=== PATIENT | female | born 2000 | race American Indian/Alaskan Native ===

== ENCOUNTER 2019-05-27 16:19 | Emergency (ER) | payer OTHER ==
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
--- NOTE | 2019-05-27 18:39 | Cat Scan Report ---
CT CERVICAL SPINE WITHOUT CONTRAST HISTORY: Pain; laceration in the head COMPARISON: None TECHNIQUE: CT images of the cervical spine were obtained without contrast. Sagittal and coronal refo rmats were post-processed. All CT scans at this location are performed using CT dose reduction for AL REGLA by means of automated exposure control. CONTRAST: None. FINDINGS: Alignment: Alignment of the vertebral bodies and articular facets are normal. However, mild reversal of cervical lordosis seen. Vertebrae:I do not see vertebral compression fracture. In the transverse images, I do not see fractur e involving the bony canal. Disc Spaces: No significant abnormality allowing for lack of intrathecal contrast. Facet Joints:No significant abnormality. Craniocervical Junction:No significant abnormality. Prevertebral Soft Tissues:No significant abnormality. Lung Apices: No significant abnormality. Additional Findings: None IMPRESSION: 1. No significant abnormality. Intervertebral disc spaces are well-maintained. No significant degenerative change seen in the uncinate or facet joints. No significant canal stenosi s or osseous foraminal narrowing. Surrounding soft tissues are grossly normal. Impression: No signs of acute bony trauma to the cervical spine. Signer Name: Eunice Iraheta MD Signed: 05/27/2019 6:34 PM Workstation Name: [id number]
[2019-05-27] MEDS ORDERED: NORCO 5/325 PO ONE (19:04)
--- NOTE | 2019-05-27 19:04 | Cat Scan Report ---
CT HEAD WITHOUT CONTRAST INDICATION / CLINICAL INFORMATION: Trauma. Scalp laceration. TECHNIQUE: All CT scans at this location are performed using CT dose reduction for ALARA by means of automated e xposure control. COMPARISON: None available. FINDINGS: HEMORRHAGE: No evidence of intracranial hemorrhage or extra-axial fluid collection. EXTRA-AXIAL SPACES: Cortical sulci, sylvian fissures and basilar cisterns have an unremarkable appear ance. VENTRICULAR SYSTEM: The ventricular system is of normal size and configuration. CEREBRAL PARENCHYMA: No areas of abnormal brain parenchymal attenuation are identified. There is no i ndication of recent infarction. MIDLINE SHIFT OR HERNIATION: There is no mass effect. CEREBELLUM / BRAINSTEM: Brainstem and cerebellum have an unremarkable appearance. INTRACRANIAL VESSELS:No abnormalities are identified on this noncontrast head CT. ORBITS: visualized portions of the orbits have an unremarkable appearance. SOFT TISSUES of HEAD: Subcutaneous emphysema is observed over the right side of the forehead where a scalp laceration is suspected.. CALVARIUM: Evaluation of bone windows reveals no abnormalities. PARANASAL SINUSES / MASTOID AIR CELLS: Inflammatory mucosal disease is present in the left frontal si nus. Paranasal sinuses are otherwise free from inflammatory mucosal disease. Mastoid air cells are no rmally pneumatized. IMPRESSION: 1. Suspect right forehead scalp laceration. 2. No intracranial abnormality. Signer Name: Nick Sparrow MD Signed: 05/27/2019 7:00 PM Workstation Name: [id number]
[2019-05-27] MEDS ORDERED: BOOSTRIX IM ONE (19:37)
[2019-05-27] MEDS ORDERED: XYLOCAINE 1%/ EPI 1:100,000 INFILTRATI NR (20:00)
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
[2019-05-27 23:48] VITALS: BP 129/87
== END 2019-05-27 20:56 | disposition home or self-care (01) ==
LOC: ED 16:19
DX: S01.81XA Laceration without foreign body of other part of head, initial encounter (principal); S16.1XXA Strain of muscle, fascia and tendon at neck level, initial encounter; J45.909 Unspecified asthma, uncomplicated; Z79.899 Other long term (current) drug therapy; V43.52XA Car driver injured in collision with other type car in traffic accident, initial encounter; Y93.89 Activity, other specified; Y92.488 Other paved roadways as the place of occurrence of the external cause; Y99.8 Other external cause status
CPT/HCPCS: 70450; 72125; 90471; 90715; 99284

== ENCOUNTER 2019-06-05 20:35 | Emergency (ER) | payer MEDICAID, OTHER ==
[2019-06-05 20:46] VITALS: BP 107/74
--- NOTE | 2019-06-05 21:34 | Emergency Department Report ---
Suture/Staple Removal - [facility] Chief Complaint: Laceration/Recheck/Suture Stated Complaint: STITCHES REMOVAL Time Seen by Provider: 06/05/19 21:21 When Sutures or Hondo Placed: 8-10 Days Ago Wound Location: right forehead ED Review of Systems ROS: Stated complaint: STITCHES REMOVAL Other details as noted in HPI Constitutional: denies: chills, fever Eyes: denies: eye pain, eye discharge, vision change ENT: denies: ear pain, throat pain Respiratory: denies: cough, shortness of breath, wheezing Cardiovascular: denies: chest pain, palpitations Endocrine: no symptoms reported Gastrointestinal: denies: abdominal pain, nausea, diarrhea Genitourinary: denies: urgency, dysuria, discharge Musculoskeletal: denies: back pain, joint swelling, arthralgia Skin: denies: rash, lesions Neurological: denies: headache, weakness, paresthesias Psychiatric: denies: anxiety, depression Hematological/Lymphatic: denies: easy bleeding, easy bruising ED Past Medical Hx - Past Medical History Previous Medical History?: Yes Hx Asthma: Yes - Surgical History Past Surgical History?: No - Social History Smoking Status: Never Smoker Substance Use Type: None - Medications Home Medications: Home Medications Medication Instructions Recorded Confirmed Last Taken Type Acetaminophen/Codeine [Tylenol 1 tab PO Q6H PRN #12 tab 05/27/19 Unknown Rx /Codeine # 3 tab] Suture Removal Exam - Exam General: Vital signs noted. No distress. Alert and acting appropriately. Wound: No Pathologic Erythema, No Tenderness, No Drainage, No Pus, No Wound Dehiscence Other Systems: All other systems reviewed and are unremarkable. ED Course Vital Signs 06/05/19 06/05/19 20:44 21:22 Temperature 97.8 F 97.8 F Pulse Rate 102 H 98 H Respiratory 14 14 Rate Blood Pressure 107/74 107/74 O2 Sat by Pulse 99 98 Oximetry - Reevaluation(s) Reevaluation #1: 06/05/19 21:32 Patient is speaking in full sentences with no signs of distress noted. ED Recheck MDM - Medical Decision Making Total of 12 stitches has been removed and patient toletaterd well. no signs of distress noted. well healing. Patient was instructed to Follow-up with a primary care doctor in 3-5 days or if symptoms worsen and continue return to emergency room as soon as possible. At time of discharge, the patient does not seem toxic or ill in appearance. No acute signs of distress noted. Patient agrees to discharge treatment plan of care. No further questions noted by the patient. Critical care attestation.: If time is entered above; I have spent that time in minutes in the direct care of this critically ill patient, excluding procedure time. ED Disposition Clinical Impression: Visit for suture removal Disposition: TO HOME OR SELFCARE Is pt being admited?: No Does the pt Need Aspirin: No Condition: Stable Instructions: Suture Removal (ED) Additional Instructions: Follow-up with a primary care doctor in 3-5 days or if symptoms worsen and continue return to emergency room as soon as possible. Referrals: PRIMARY CARE, [Referring] - 3-5 Days EDUARDO SALINAS MD [Staff Physician] - 3-5 Days [facility] [Outside] - 3-5 Days [facility] [Outside] - 3-5 Days Forms: Work/School Release Form(ED)
== END 2019-06-05 21:40 | disposition home or self-care (01) ==
LOC: ED 20:35
DX: Z48.02 Encounter for removal of sutures (principal)